=== PATIENT | male | born 1985 | race Caucasian/White ===

== ENCOUNTER 2022-01-03 11:39 | Emergency (ER) | payer BC, SELFPAY ==
[2022-01-03 11:49] VITALS: BP 132/80; PULSE 78; RESP 16; TEMP 36.7; O2SAT 99
--- NOTE | 2022-01-03 11:53 | ED.BACK ---
HPI - Back Pain/Injury General Chief Complaint: Back Pain/Injury Stated Complaint: Back Pain Time Seen by Provider: 01/03/22 11:53 Source: patient Mode of arrival: ambulatory Limitations: no limitations History of Present Illness HPI Narrative: 36 yo M presents wtih c/o L sided mid back pain since yesterday morning. States he woke up with pain then drove to [place] from [place]. Has been taking ibuprofen with little relief. States hx of similar pain and was told muscle spasm. Pain worse with movement and with deep breath. Ambulatory with steady gait. No resp distress. All systems reviewed and negative except as noted above. Related Data Home Medications Medication Instructions Recorded Confirmed albuterol sulfate 90 mcg/actuation 2 puff inhalation DIRECTED 01/03/22 01/03/22 aerosol inhaler atorvastatin 40 mg tablet 40 mg PO DAILY 01/03/22 01/03/22 sertraline 50 mg tablet 50 mg PO DAILY 01/03/22 01/03/22 tacrolimus 0.1 % topical ointment 1 applic topical BID 01/03/22 01/03/22 Allergies Allergy/AdvReac Type Severity Reaction Status Date / Time No Known Allergies Allergy Verified 01/03/22 11:55 Review of Systems Review of Systems: CONSTITUTIONAL: Denies fever, chills, or sweats. EYES: Denies visual changes, redness, or discharge. ENT: Denies rhinorrhea, congestion, sore throat, or otalgia. CARDIOVASCULAR: Denies chest pain, palpitations, or edema. RESPIRATORY: Denies cough or dyspnea. GASTROINTESTINAL: Denies abdominal pain, nausea, vomiting, or diarrhea. GENITOURINARY: Denies dysuria or hematuria. SKIN: Denies rash or itching. MUSCULOSKELETAL: Denies joint pain, or myalgia. Reports left-sided mid back pain. NEUROLOGIC: Denies headache, numbness, or weakness. PSYCHIATRIC: Denies anxiety or depression. All other systems reviewed are negative, except as documented in HPI. PMFSH Comments At time of signature, agree with nursing past medical, surgical, social and family history. There is no relevant family history pertinent to the presenting complaint. Exam Narrative: GENERAL: This is a well-nourished, well-developed patient, in no apparent distress. HEAD: normocephalic, atraumatic. EYES: PERRL. Sclera clear/white. Vision is grossly intact. EARS: External ears normal NOSE: External nose normal NECK: Neck supple, non-tender without lymphadenopathy, masses or thyromegaly. CARDIOVASCULAR: Regular rate and rhythm without murmurs, gallops, or rubs. RESPIRATORY: Clear to auscultation. Breath sounds equal bilaterally. No wheezes, rales, or rhonchi. SKIN: warm, Dry, intact with no suspicious lesions or rash, good texture and turgor. NEURO: awake, alert, and oriented to person, place and time. There were no obvious focal neurologic abnormalities. EXTREMITIES: No joint tenderness, effusion, or edema noted. BACK: tenderness to L rhomboid, spasm. full ROM to L shoulder. Pain with 180 degree flexion. No weakness to L upper extremity. Course Course Level of Care: Express Care Visit Vital Signs Vital signs: Vital Signs Temperature 36.7 C 01/03/22 11:49 Pulse Rate 78 01/03/22 11:49 Respiratory Rate 16 01/03/22 11:49 Blood Pressure 132/80 01/03/22 11:49 Pulse Oximetry 99 01/03/22 11:49 Oxygen Delivery Room Air 01/03/22 11:49 Temperature 36.7 C 01/03/22 11:49 Pulse Rate 78 01/03/22 11:49 Respiratory Rate 16 01/03/22 11:49 Blood Pressure 132/80 01/03/22 11:49 Pulse Oximetry 99 01/03/22 11:49 Oxygen Delivery Room Air 01/03/22 11:49 Reviewed MDM - Back Pain/Injury MDM Narrative Medical decision making narrative: Patient is aware of diagnosis, understands and agrees to treatment plan. Anticipatory guidance given. Patient agrees to follow-up as directed and is aware of reasons to seek care at the emergency department. Portions of this record may have been created with voice recognition software Discharge Plan Discharge Clinical Impression: Strain of mus
== END 2022-01-03 12:02 | disposition home or self-care (01) ==
PROVIDERS: Emergency Provider Nurse Practitioner Family
DX: S29.012A Strain of muscle and tendon of back wall of thorax, initial encounter (principal); X58.XXXA Exposure to other specified factors, initial encounter; E78.00 Pure hypercholesterolemia, unspecified; J45.909 Unspecified asthma, uncomplicated; F32.A Depression, unspecified
CPT/HCPCS: 99203; G0463